=== PATIENT | female | born 1970 | race Caucasian/White ===

== ENCOUNTER 2016-06-19 21:06 | Emergency (ER) | payer BC, OTHER ==
--- NOTE | 2016-06-19 22:12 | RAD ---
Indication: Slurred speech. CT of the brain was performed without IV contrast. Ventricular structures are midline. No midline shift is noted. The extraction spaces are unremarkable. There is no evidence of intracranial mass or hemorrhage. No other high or low density lesions are identified. Mastoid air cells and paranasal sinuses are unremarkable. IMPRESSION: No intracranial mass or hemorrhage is noted.
[2016-06-19 22:33] LABS: Hematocrit 37 % (35-47); Hemoglobin 12.1 g/dl (12.0-16.0); Mean Corpuscular HGB Conc 33 g/dl (31-36); Mean Corpuscular Hemoglobin 30 pg (27-31); Mean Corpuscular Volume 91 fL (80-97); Mean Platelet Volume 9 um3 (7.4-10.4); Red Blood Count 4.03 10^6/ul (4.0-5.4); Red Cell Distribution Width 12 % (10.5-15); White Blood Count 7.2 10^3/ul (3.5-10.8)
[2016-06-19 22:43] LABS: ALT 48 U/L (7-52); AST 47 U/L (13-39); Albumin 3.8 g/dL (3.2-5.2); Alkaline Phosphatase 46 U/L (34-104); Anion Gap 9 mmol/L (2-11); BUN/Creatinine Ratio 24.1 (8-20); Blood Urea Nitrogen 20 mg/dL (6-24); CO2 Carbon Dioxide 26 mmol/L (22-32); Calcium 9.4 mg/dL (8.6-10.3); Chloride 103 mmol/L (101-111); EGFR African American 94.8 (>60); EGFR Non-African American 73.7 (>60); Globulin 3.1 g/dL (2-4); Glucose 106 mg/dL (70-100); Potassium 3.7 mmol/L (3.5-5.0); Sodium 138 mmol/L (133-145); Total Protein 6.9 g/dL (6.4-8.9)
[2016-06-19 22:47] LABS: Troponin I 0.01 ng/mL (<0.04)
[2016-06-19 23:35] LABS: Urine Bacteria Absent (Absent); Urine Bilirubin Negative (Negative); Urine Glucose Negative (Negative); Urine Nitrite Negative (Negative)
[2016-06-19 23:47] VITALS: BP 118/72
--- NOTE | 2016-06-20 00:12 | ED ---
Eduin Hendricks Claudia, scribed for Maco Saravia on 06/19/16 at 2114 . Neurological HPI - HPI Summary HPI Summary: 46 year old female presents to the ED with an intermittent episode of peripheral visual loss with difficulty forming words. Pt states sudden onset a few minutes ago. Pt notes episode lasted about 20 minutes. She notes that Sx resolved by the time EMS arrived. PMHx of MS is noted with 20 years of no flare- ups. Pt denies CP, SOB. Pt denied any physical weakness or confusion and notes she was able to stand and ambulate but she did have difficulty forming ideas into words and sentences as well as texting her ideas to her . Pt takes Avonex Rx regularly for MS - History of Current Complaint Stated Complaint: STROKE LIKE SYMPTOMS Hx Obtained From: Patient Onset/Duration: Sudden Onset, Started minutes ago Timing: Intermittent Episodes Lasting: - 20 minutes Character: Impaired Speech - Allergy/Home Medications Allergies/Adverse Reactions: Allergies Allergy/AdvReac Type Severity Reaction Status Date / Time No Known Allergies Allergy Verified 02/15/15 10:48 PMH/Surg Hx/FS Hx/Imm Hx Previously Healthy: Yes Endocrine/Hematology History: Denies: Hx Diabetes Cardiovascular History: Denies: Hx Hypertension, Hx Pacemaker/ICD History: Denies: Hx Dialysis, Hx Renal Disease Sensory History: Denies: Hx Hearing Aid Psychiatric History: Denies: Hx Panic Disorder - Cancer History Hx Chemotherapy: No Hx Radiation Therapy: No - Surgical History Surgery Procedure, Year, and Place: 2004,BREAST BIOPSY 2010 - Family History Known Family History: Negative: Hypertension, Diabetes - Social History Occupation: Employed Full-time Lives: With Family Hx Substance Use: No Hx Tobacco Use: No Review of Systems Constitutional: Negative Eyes: Negative ENT: Negative Cardiovascular: Negative Negative: Chest Pain Respiratory: Negative Negative: Shortness Of Breath Gastrointestinal: Negative Genitourinary: Negative Musculoskeletal: Negative Skin: Negative Neurological: Negative Psychological: Normal All Other Systems Reviewed And Are Negative: Yes Physical Exam Triage Information Reviewed: Yes Vital Signs Reviewed: Yes Appearance: Positive: Well-Appearing, No Pain Distress Skin: Positive: Warm, Skin Color Reflects Adequate Perfusion, Dry Head/Face: Positive: Normal Head/Face Inspection Eyes: Positive: EOMI, PERLA ENT: Positive: Normal ENT inspection Neck: Positive: Supple, Nontender Respiratory/Lung Sounds: Positive: Clear to Auscultation, Breath Sounds Present Cardiovascular: Positive: RRR, Pulses are Symmetrical in both Upper and Lower Extremities Abdomen Description: Positive: Nontender, Soft Musculoskeletal: Positive: Normal, Strength/ROM Intact Neurological: Positive: Normal, Sensory/Motor Intact, Alert, Oriented to Person Place, Time Diagnostics - Laboratory Result Diagrams: 06/19/16 22:00 06/19/16 22:00 Lab Statement: Any lab studies that have been ordered have been reviewed, and results considered in the medical decision making process. - CT BRAIN CT CT Interpretation: No Acute Changes - NO ACUTE INTRACRANIAL MASSES OR HEMMORHAGE CT Interpretation Completed By: Radiologist - EKG 21:05 Cardiac Rate: NL EKG Rhythm: Sinus Rhythm - 69 beats/min NIH Scale - NIH Scale Level of Consciousness: Alert/Keenly Responsive Ask Patient the Month and His/Her Age: Both Correct Ask Pt to Open/Close Eyes and Chief Digital Officer/Release Non-Paretic Hand: Both Correctly Best Gaze (Only Horizontal Eye Movement): Normal Visual Field Testing: No Visual Loss Facial Paresis-Pt to Smile & Close Eyes or Grimace Symmetry: Normal/Symmetrical Motor Function - Right Arm: No Drift-Holds 10 Seconds Motor Function - Left Arm: No Drift-Holds 10 Seconds Motor Function - Right Leg: No Drift-Holds 10 Seconds Motor Function - Left Leg: No Drift-Holds 10 Seconds Limb Ataxia-Must be out of Proportion to Weakness Present: Absent Sensory (Use Pinprick to Test Arms/Legs/Trunk/Face): Normal Best Language (Describe Picture, Name Items): No Aphasia Dysarthria (Read Several Words): Normal Extinction and Inattention: No Abnormality Total Score: 0 Course/Dx - Course Assessment/Plan: AFTER CT BRAIN AND EKG AND CONSULT WITH NEUROLOGY PT IS AGREEABLE WITH THE PLAN TO BE D/C HOME WITH A CALL TO DR. HAMEED IN THE AM FOR A FOLLOW-UP APPT. - Diagnoses Provider Diagnoses: Multiple sclerosis - Physician Notifications Discussed Care of Patient With: Discussed care of patient with Dr. Soriano. Time Discussed With Above Provider: 22:43 Discharge - Discharge Plan Condition: Stable Disposition: HOME Patient Education Materials: Multiple Sclerosis (GEN) Referrals: Vilma Hameed MD [Medical Doctor] - (CALL IN THE MORNING TO MAKE AN APPOINTMENT ) The documentation as recorded by the scribEduin pizarro Claudia accurately reflects the service I personally performed and the decisions made by me, Maco Saravia.
== END 2016-06-19 23:45 | disposition home or self-care (01) ==
LOC: ED 21:06
DX: G35 Multiple sclerosis (principal)
CPT/HCPCS: 36415; 70450; 80053; 81003; 81015; 84484; 84702; 85025; 85610; 87086; 93005; 99282

== ENCOUNTER 2016-09-07 10:08 | Emergency (ER) | payer BC, OTHER ==
--- NOTE | 2016-09-07 11:07 | UC ---
Hand/Wrist HPI - HPI Summary HPI Summary: 46 yo female with severe pain distal 4th 5th MCs of left hand tx 2 days attempts to flex 4th/5th fingers increase pain she is right handed - History Of Current Complaint Chief Complaint: UCUpperExtremity Stated Complaint: HAND PAIN Time Seen by Provider: 09/07/16 11:06 Hx Obtained From: Patient Hx Last Menstrual Period: IUD Onset/Duration: Gradual Onset, Lasting Days Severity Initially: Severe Severity Currently: Severe Pain Intensity: 4 Pain Scale Used: 0-10 Numeric Character Of Pain: Aching, Throbbing Aggravating Factor(s): Movement, Flexion Alleviating: Nothing Associated Signs And Symptoms: Negative: Swelling, Redness, Bruising, Fever, Weakness, Numbness/Tingling Related History: Dominant Hand Right - Allergies/Home Medications Allergies/Adverse Reactions: Allergies Allergy/AdvReac Type Severity Reaction Status Date / Time Codeine Allergy GI Upset Verified 09/07/16 10:45 Hydrocodone [From Vicodin] AdvReac GI Upset Verified 06/20/16 18:24 Oxycodone [From Percocet] AdvReac GI Upset Verified 06/20/16 18:24 Home Medications: Home Medications Interferon Beta-1A [Avonex Pen] 5 mcg IM WEEKLY 09/07/16 [History Confirmed ] PMH/Surg Hx/FS Hx/Imm Hx Previously Healthy: Yes - MS Endocrine History Of: Denies: Diabetes Cardiovascular History Of: Denies: Hypertension, Pacemaker/ICD Respiratory History Of: Denies: Asthma GI/ History Of: Denies: Renal Disease Cancer History Of: Denies: Breast Cancer - Surgical History Surgical History: None Surgery Procedure, Year, and Place: 2004;. HEMMOROIDECTOMY;. BREAST BIOPSY 2010; - Family History Known Family History: Negative: Hypertension, Diabetes - Social History Alcohol Use: Rare Substance Use Type: None Smoking Status (MU): Never Smoked Tobacco Review of Systems Constitutional: Negative Skin: Negative Eyes: Negative ENT: Negative Respiratory: Negative Cardiovascular: Negative Gastrointestinal: Negative Genitourinary: Negative Motor: Negative Neurovascular: Negative Musculoskeletal: Arthralgia Neurological: Negative Psychological: Negative All Other Systems Reviewed And Are Negative: Yes Physical Exam Triage Information Reviewed: Yes Appearance: Well-Appearing, No Pain Distress, Well-Nourished Vital Signs: Initial Vital Signs Temp 98.8 F 09/07/16 10:37 Pulse 77 09/07/16 10:37 Resp 16 09/07/16 10:37 BP 131/74 09/07/16 10:37 Pulse Ox 100 09/07/16 10:37 Eyes: Positive: Conjunctiva Clear ENT: Positive: Hearing grossly normal. Negative: Nasal congestion, Nasal drainage, Trismus, Muffled/hoarse voice Neck: Positive: Supple Respiratory: Positive: Lungs clear, Normal breath sounds, No respiratory distress, No accessory muscle use Cardiovascular: Positive: RRR, No Murmur Musculoskeletal: Positive: Other: - see image Neurological: Positive: Alert Psychological Exam: Normal Skin Exam: Normal Hand/Wrist Course/Dx - Differential Dx/Diagnosis Provider Diagnoses: left hand tendonitis Discharge - Discharge Plan Condition: Stable Disposition: HOME Prescriptions: Naproxen [Naproxen 500 MG TABS] 500 mg PO BID PRN #30 tab PRN Reason: Pain Patient Education Materials: Tendinitis (ED) Referrals: Jonathan Barnes MD [Primary Care Provider] - Additional Instructions: warm soaks with range of motion followed by massage (4x day) see your MD early in the week as planned Images Hands: 1 - tender/unable to flex 4th /5th fingers due to pain
--- NOTE | 2016-09-07 11:46 | RAD ---
INDICATION: Left hand pain. TECHNIQUE: 2 views of the left hand were obtained. FINDINGS: The bones are in normal alignment. No fracture is seen. There is a calcification present adjacent to the lateral base of the fifth proximal phalanx. Joint spaces appear maintained. No significant arthritic change is seen. IMPRESSION: SOFT TISSUE CALCIFICATION ADJACENT TO THE LATERAL BASE OF THE FIFTH PROXIMAL PHALANX.
[2016-09-07 12:26] VITALS: BP 124/79
== END 2016-09-07 12:28 | disposition home or self-care (01) ==
LOC: UCEAST 10:08
DX: M65.842 Other synovitis and tenosynovitis, left hand (principal); Z88.5 Allergy status to narcotic agent
CPT/HCPCS: 99212; G0463

== ENCOUNTER 2018-02-10 13:27 | Emergency (ER) | payer BC, OTHER ==
[2018-02-10 13:45] VITALS: BP 108/69
--- NOTE | 2018-02-10 14:47 | ED ---
Headache - HPI Summary HPI Summary: MS Patient presents with new onset left-sided headache since Friday. She reports it's been intermittent and she developed this the second night of camping with her family at [facility]. She is concerned as this headache is waking her from sleep each night since. She reports is an aching pressure and denies visual change or aura. She does admit to some neck soreness , left greater than right, but states this is very mild and she has chronic shoulder and neck tension. When the pain starts, she applies pressure to the left side of her head with her hand which helps until her 400 mg of ibuprofen kicks in. However once the 400 mg of ibuprofen wears off in 4-6 hours, her headache returns and is quite painful. She reports it being 6-7 out of 10 at its worst and she has difficulty concentrating when it's present. 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 Last night she admits when her headache started, she developed some spins and dizziness with nausea. This was not triggered or worsened with change in position and she states the symptoms lasted briefly and resolved once her helped calm her down by reassurance. She does admit she was quite anxious during this episode last night. Took ibuprofen at 12:30pm this afternoon and MA is currently under control (0/10 pain). She is here today as she continues to get headaches once the ibuprofen wears off. She denies URI symptoms, fever, chills, any recent head injuries or trauma , change in lifestyle including change in medications. She does have a history of MS which is only triggered by overheating and her symptoms present with blurred vision only. She has had no exposure to heat nor change in vision since these symptoms started. Currently, she denies numbness, tingling, weakness, balance issues, slurring, abnormal speech. She follows with Dr. Vilma So and has an MRI annually which is always normal. Furthermore, she denies recent stress and in fact felt very relaxed while camping this weekend with her family. She does admit she drank more alcohol than usual however this was still a small amount (i.e. one and 1/2, 12 ounce bottles of hard cider 2 nights in a row). She reports she also drink plenty of water and had non-hard apple cider. She hiked w/o difficulty or pain and slept well except for when headache woke her from sleep each night. No known h/o tick bite. - History Of Current Complaint Chief Complaint: UCHeadache Stated Complaint: HEADACHE Time Seen by Provider: 02/10/18 13:59 Hx Obtained From: Patient Hx Last Menstrual Period: IUD in place - Allergies/Home Medications Allergies/Adverse Reactions: Allergies Allergy/AdvReac Type Severity Reaction Status Date / Time codeine Allergy GI Upset Verified 02/10/18 13:45 hydrocodone Allergy GI Upset Verified 02/10/18 13:45 oxycodone Allergy GI Upset Verified 02/10/18 13:45 Home Medications: Home Medications Ibuprofen [dyna[employer] softwareense Ibuprofen] 400 mg PO ONCE PRN 02/10/18 [History Confirmed 02/10/18] PMH/Surg Hx/FS Hx/Imm Hx Previously Healthy: Yes Endocrine/Hematology History: Reports: Autoimmune Disease - MS Denies: Hx Anticoagulant Therapy, Hx Blood Disorders, Hx Diabetes, Hx Thyroid Disease, Hx Anemia Cardiovascular History: Denies: Hx Aneurysm, Hx Hypertension, Hx Pacemaker/ICD Respiratory History: Denies: Hx Asthma GI History: Denies: Hx Gastrointestinal Bleed History: Denies: Hx Dialysis, Hx Renal Disease Musculoskeletal History: Denies: Hx Arthritis Sensory History: Reports: Hx Contacts or Glasses Denies: Hx Hearing Aid Opthamlomology History: Reports: Hx Contacts or Glasses Neurological History: Reports: Other Neuro Impairments/Disorders - MS - sx include blurred vision when she overheats Denies: Hx CVA, Hx Dementia, Hx Headaches, Hx Migraine, Hx Peripheral Neuropathy, Hx Seizures Psychiatric History: Denies: Hx Panic Disorder - Cancer History Hx Chemotherapy: No Hx Radiation Therapy: No - Surgical History Surgery Procedure, Year, and Place: 2004;. HEMMOROIDECTOMY;. Rt BREAST BIOPSY 2010 - W/ BX MARKER Infectious Disease History: No Infectious Disease History: Denies: Traveled Outside the [place] in Last 30 Days - Family History Known Family History: Negative: Hypertension, Diabetes - Social History Alcohol Use: Rare Hx Substance Use: No Substance Use Type: Reports: None Hx Tobacco Use: No Smoking Status (MU): Never Smoked Tobacco Review of Systems Constitutional: Negative Negative: Fever, Chills, Fatigue Eyes: Negative Negative: Photophobia, Blurred Vision, Diplopia, Drainage, Erythema ENT: Negative Negative: Epistaxis, Dental Pain, Sore Throat, Ear Ache, Nasal Discharge Cardiovascular: Negative Negative: Palpitations, Chest Pain Respiratory: Negative Negative: Shortness Of Breath, Cough Gastrointestinal: Negative Negative: Abdominal Pain, Vomiting, Diarrhea, Nausea Positive: no symptoms reported Positive: Myalgia - neck Skin: Negative Positive: Headache. Negative: Weakness, Paresthesia, Numbness, Syncope, Slurred Speech Psychological: Normal - concerned but overall low stress All Other Systems Reviewed And Are Negative: Yes Physical Exam Triage Information Reviewed: Yes Vital Signs On Initial Exam: Initial Vitals Temp Pulse Resp BP Pulse Ox 97.6 F 73 18 108/69 99 02/10/18 13:38 02/10/18 13:38 02/10/18 13:38 02/10/18 13:38 02/10/18 13:38 Vital Signs Reviewed: Yes Appearance: Positive: Well-Appearing, No Pain Distress, Well-Nourished Skin: Positive: Warm, Skin Color Reflects Adequate Perfusion, Dry - no rsah, lesions Head/Face: Positive: Normal Head/Face Inspection Eyes: Positive: Normal, EOMI, PERLA - no photophobia, Conjunctiva Clear. Negative: Conjunctiva Inflammed, Discharge ENT: Positive: Normal ENT inspection, Hearing grossly normal, Pharynx normal, TMs normal, Uvula midline. Negative: Nasal congestion, Nasal drainage, Tonsillar swelling, Tonsillar exudate, Trismus, Muffled voice, Hoarse voice, Sinus tenderness Dental: Negative: Abscess @ Neck: Positive: Supple, Nontender, No Lymphadenopathy Respiratory/Lung Sounds: Positive: Clear to Auscultation, Breath Sounds Present. Negative: Rales, Rhonchi, Wheezes Cardiovascular: Positive: Normal, RRR, S1, S2. Negative: Murmur, Rub, Leg Edema Left, Leg Edema Right Abdomen Description: Positive: Soft Bowel Sounds: Positive: Present Musculoskeletal: Positive: Normal, Strength/ROM Intact Neurological: Positive: Normal, Sensory/Motor Intact, Alert, Oriented to Person Place, Time, CN Intact II-III, Reflexes Intact, Normal Gait, Heel to Toe - normal, Finger to Nose, Facial Symmetry, Speech Normal. Negative: Disoriented, Pronator Drift Present Psychiatric: Positive: Normal Diagnostics - Vital Signs Vital Signs Temp Pulse Resp BP Pulse Ox 02/10/18 13:38 97.6 F 73 18 108/69 99 - Laboratory Lab Statement: Any lab studies that have been ordered have been reviewed, and results considered in the medical decision making process. Headache Course/Dx - Course Course Of Treatment: Pt w/ MS and persistent unilateral MA x 4 days who does not typically get MA's nor has she had a definitive dx of migraine presents today w/ concern of underlying pathology. Clinically, she is neurologically intact nad vitals are WNL. Discussed case w/ Dr. Belle who recommends ED evaluation for labs as well as MRI W/WO contrast to better evaluate for MS flair up. Pt agrees w/ plan and will have her drive her directly to the hospital. She declines ambulance. Pt in stable condition at time of transition of care. Spoke w/ JOELLE in ED who is aware of pt's recommended medical plan. 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 - Billing Disposition and Condition Condition: STABLE Disposition: Home-Recommend to ED
== END 2018-02-10 15:35 | disposition home health service (06) ==
LOC: UCEAST 13:27
DX: R51 Headache (principal); G35 Multiple sclerosis; Z88.5 Allergy status to narcotic agent
CPT/HCPCS: 99212; G0463

== ENCOUNTER 2018-02-10 16:27 | Emergency (ER) | payer BC, OTHER ==
[2018-02-10 18:33] LABS: ABS Basophils 0 10^3/ul (0-0.2); ABS Eosinophils 0.1 10^3/ul (0-0.6); ABS Lymphocytes 1.9 10^3/ul (1.0-4.8); ABS Monocytes 0.7 10^3/ul (0-0.8); ABS Neutrophils 5.8 10^3/ul (1.5-7.7); ABS Nucleated RBC 0 10^3/ul; Eosinophil % 1.4 % (0-6); Hematocrit 36 % (35-47); Hemoglobin 12.2 g/dl (12.0-16.0); Mean Corpuscular HGB Conc 34 g/dl (31-36); Mean Corpuscular Hemoglobin 31 pg (27-31); Mean Corpuscular Volume 93 fL (80-97); Mean Platelet Volume 7.9 um3 (7.4-10.4); Nucleated Red Blood Cells % 0; Platelet Count 264 10^3/ul (150-450); Red Blood Count 3.89 10^6/ul (4.00-5.40); Red Cell Distribution Width 12 % (10.5-15); White Blood Count 8.5 10^3/ul (3.5-10.8)
[2018-02-10 18:55] LABS: EGFR Non-African American 74.4 (>60)
[2018-02-10] MEDS ORDERED: Ibuprofen TAB* 600 MG PO ONE (19:21)
[2018-02-10] MEDS ORDERED: Gadoteridol* (CONTRAST) 279.3 MG/ML 10 ML IV ONE (19:47)
--- NOTE | 2018-02-10 21:00 | RAD ---
EXAM: MRI Head Without and With Intravenous Contrast EXAM DATE/TIME: 02/10/2018 8:08 PM CLINICAL HISTORY: 47 years old, female; Pain and condition or disease; Multiple sclerosis; Headache; Headache not specified; Patient HX: C/O ongoing left sided headaches since friday. PT also reports one episode of nausea and dizziness upon waking. H/o ms. Sent to ed by neuro to [facility] for ms flair up. ; Additional info: MA, R/O ms flair per dr birmingham TECHNIQUE: Magnetic resonance images of the head/brain without and with intravenous contrast in multiple planes. CONTRAST: 13 ml of prohance administered intravenously. COMPARISON: BRAIN [facility] MRI BRAIN W/WO 10/02/2017 9:05 AM FINDINGS: Ventricular and subarachnoid spaces appear within normal limits. No extra-axial fluid collection. No midline shift or mass effect. There are foci of white matter gliosis involving both the periventricular/pericallosal white matter as well as subcortical white matter. No pathologic susceptibility. No diffusion restriction. No pathologic intracranial enhancement. Visualized paranasal sinuses and mastoid air cells are clear. IMPRESSION: White matter gliosis as above concerning for demyelination. No evidence of active demyelination. To contact [employer] with a general question: [facility] - [phone] For direct physician to physician contact: Physician Hotline - [phone] [facility] ([facility] Facility ID #[id number])
[2018-02-10] MEDS ORDERED: diPHENhydraMINE PO* 25 MG PO ONE (21:48)
[2018-02-10] MEDS ORDERED: Metoclopramide TAB* 10 MG PO ONE (21:48)
--- NOTE | 2018-02-10 21:51 | ED ---
Headache - HPI Summary HPI Summary: Patient complains of persistent headache 4 days. Headache described as left- sided frontal, intermittent, temporary relief with ibuprofen, which patient up and sleep. States associated with dizziness and nausea. Denies trauma, vision change, neck stiffness, fever, cough, sore throat, CP, V/D, abdominal pain, change in urine, change in BM. Patient has history of MS. Sent to the ED by neurologist Dr. So for MRI with and without contrast and lab work. - History Of Current Complaint Chief Complaint: EDHeadache Stated Complaint: HEADACHE Time Seen by Provider: 02/10/18 17:53 Hx Obtained From: Patient Hx Last Menstrual Period: IUD in place Onset/Duration: Gradual Onset Initially Headache Was: Moderate Currently Pain Is: Moderate Timing: Constant Character: Throbbing Location of Headache: Frontal Aggravating Factor: Nothing Allevating Factors: Medication Associated Signs And Symptoms: Nausea - Allergies/Home Medications Allergies/Adverse Reactions: Allergies Allergy/AdvReac Type Severity Reaction Status Date / Time codeine Allergy GI Upset Verified 02/10/18 13:45 hydrocodone Allergy GI Upset Verified 02/10/18 13:45 oxycodone Allergy GI Upset Verified 02/10/18 13:45 Home Medications: Home Medications Interferon Beta-1A [Avonex Pen] 30 mcg IM WEEKLY 02/10/18 [History Confirmed ] PMH/Surg Hx/FS Hx/Imm Hx Endocrine/Hematology History: Denies: Hx Anticoagulant Therapy, Hx Blood Disorders, Hx Diabetes, Hx Thyroid Disease, Hx Anemia Cardiovascular History: Denies: Hx Aneurysm, Hx Hypertension, Hx Pacemaker/ICD Respiratory History: Denies: Hx Asthma GI History: Denies: Hx Gastrointestinal Bleed History: Denies: Hx Dialysis, Hx Renal Disease Musculoskeletal History: Denies: Hx Arthritis Sensory History: Reports: Hx Contacts or Glasses Denies: Hx Hearing Aid Opthamlomology History: Reports: Hx Contacts or Glasses Neurological History: Reports: Other Neuro Impairments/Disorders - MS - sx include blurred vision when she overheats Denies: Hx CVA, Hx Dementia, Hx Headaches, Hx Migraine, Hx Peripheral Neuropathy, Hx Seizures Psychiatric History: Denies: Hx Panic Disorder - Cancer History Hx Chemotherapy: No Hx Radiation Therapy: No - Surgical History Surgery Procedure, Year, and Place: 2004;. HEMMOROIDECTOMY;. Rt BREAST BIOPSY 2010 - W/ BX MARKER Infectious Disease History: No Infectious Disease History: Denies: Traveled Outside the [place] in Last 30 Days - Family History Known Family History: Negative: Hypertension, Diabetes - Social History Alcohol Use: Rare Hx Substance Use: No Substance Use Type: Reports: Marijuana Hx Tobacco Use: No Smoking Status (MU): Never Smoked Tobacco Review of Systems Constitutional: Negative Eyes: Negative ENT: Negative Cardiovascular: Negative Respiratory: Negative Gastrointestinal: Negative Genitourinary: Negative Musculoskeletal: Negative Skin: Negative Positive: Headache Psychological: Normal All Other Systems Reviewed And Are Negative: Yes Physical Exam - Summary Physical Exam Summary: Neuro exam normal. Triage Information Reviewed: Yes Vital Signs On Initial Exam: Initial Vitals Temp Pulse Resp BP Pulse Ox 97.8 F 69 16 132/73 99 02/10/18 16:29 02/10/18 16:29 02/10/18 16:29 02/10/18 16:29 02/10/18 16:29 Vital Signs Reviewed: Yes Appearance: Positive: Well-Appearing Skin: Positive: Warm Head/Face: Positive: Normal Head/Face Inspection Eyes: Positive: Normal Neck: Positive: Supple Respiratory/Lung Sounds: Positive: Clear to Auscultation Cardiovascular: Positive: Normal Abdomen Description: Positive: Nontender Musculoskeletal: Positive: Normal Neurological: Positive: Normal Psychiatric: Positive: Normal AVPU Assessment: Alert - [place] Coma Scale Best Eye Response: 4 - Spontaneous Best Motor Response: 6 - Obeys Commands Best Verbal Response: 5 - Oriented Coma Scale Total: 15 Diagnostics - Vital Signs Vital Signs Temp Pulse Resp BP Pulse Ox 02/10/18 20:58 97.3 F 65 16 122/71 100 02/10/18 16:29 97.8 F 69 16 132/73 99 - Laboratory Lab Results: Lab Results 02/10/18 02/10/18 Range/Units 18:20 18:20 WBC 8.5 (3.5-10.8) 10^3/ul RBC 3.89 L (4.00-5.40) 10^6/ul Hgb 12.2 (12.0-16.0) g/dl Hct 36 (35-47) % MCV 93 (80-97) fL MCH 31 (27-31) pg MCHC 34 (31-36) g/dl RDW 12 (10.5-15) % Plt Count 264 (150-450) 10^3/ul MPV 7.9 (7.4-10.4) um3 Neut % (Auto) 68.1 (38-83) % Lymph % (Auto) 22.0 L (25-47) % Wetzel % (Auto) 8.0 H (0-7) % Eos % (Auto) 1.4 (0-6) % Baso % (Auto) 0.5 (0-2) % Absolute Neuts (auto) 5.8 (1.5-7.7) 10^3/ul Absolute Lymphs (auto) 1.9 (1.0-4.8) 10^3/ul Absolute Monos (auto) 0.7 (0-0.8) 10^3/ul Absolute Eos (auto) 0.1 (0-0.6) 10^3/ul Absolute Basos (auto) 0 (0-0.2) 10^3/ul Absolute Nucleated RBC 0 10^3/ul Nucleated RBC % 0 Sodium 138 (135-145) mmol/L Potassium 4.0 (3.5-5.0) mmol/L Chloride 107 (101-111) mmol/L Carbon Dioxide 25 (22-32) mmol/L Anion Gap 6 (2-11) mmol/L BUN 16 (6-24) mg/dL Creatinine 0.82 (0.51-0.95) mg/dL Est GFR ( Amer) 90.0 (>60) Est GFR (Non-Af Amer) 74.4 (>60) BUN/Creatinine Ratio 19.5 (8-20) Glucose 77 (70-100) mg/dL Calcium 9.0 (8.6-10.3) mg/dL Total Bilirubin 0.70 (0.2-1.0) mg/dL AST 14 (13-39) U/L ALT 9 (7-52) U/L Alkaline Phosphatase 44 (34-104) U/L C-Reactive Protein 7.08 (<8.01) mg/L Total Protein 6.7 (6.4-8.9) g/dL Albumin 4.1 (3.2-5.2) g/dL Globulin 2.6 (2-4) g/dL Albumin/Globulin Ratio 1.6 (1-3) Result Diagrams: 02/10/18 18:20 02/10/18 18:20 Lab Statement: Any lab studies that have been ordered have been reviewed, and results considered in the medical decision making process. Headache Course/Dx - Course Course Of Treatment: Patient complains of persistent headache 4 days. Headache described as left-sided frontal, intermittent, temporary relief with ibuprofen, which patient up and sleep. States associated with dizziness and nausea. Denies trauma, vision change, neck stiffness, fever, cough, sore throat , CP, V/D, abdominal pain, change in urine, change in BM. Patient has history of MS. Sent to the ED by neurologist Dr. So for MRI with and without contrast and lab work. History of headache and MS. pain improved with ibuprofen. MRI negative for acute process. Lab work unremarkable. Vital signs unremarkable. Follow-up with Dr. So - Diagnoses Provider Diagnoses: Headache, Multiple sclerosis Discharge - Sign-Out/Discharge Documenting (check all that apply): Patient Departure - Discharge Plan Condition: Stable Disposition: HOME Patient Education Materials: Multiple Sclerosis (DC), Acute Headache (ED) Referrals: Jonathan Barnes MD [Primary Care Provider] - Additional Instructions: Follow-up with your neurologist. Return to the ED for any new or worsening symptoms - Billing Disposition and Condition Condition: STABLE Disposition: Home
[2018-02-10 22:33] VITALS: BP 117/61
== END 2018-02-10 22:33 | disposition home or self-care (01) ==
LOC: ED 16:27
DX: R51 Headache (principal); R90.82 White matter disease, unspecified; G35 Multiple sclerosis; R42 Dizziness and giddiness; R11.0 Nausea; Z88.5 Allergy status to narcotic agent
CPT/HCPCS: 36415; 70553; 80053; 85025; 86140; 96374; 99282; A9270-GY; A9579

== ENCOUNTER 2018-06-22 16:52 | Emergency (ER) | payer BC, OTHER ==
[2018-06-22] MEDS ORDERED: diPHENhydraMINE IV* 50 MG/ML 1 ml VIAL (BENADRYL) IV ONE (16:57)
[2018-06-22] MEDS ORDERED: methylPREDNISolone 125 MG* 2 ML VIAL IV ONE (16:58)
[2018-06-22] MEDS ORDERED: Famotidine IV* 10 MG/ML 2 ML (20 mg) IV SLOW PU ONE (16:58)
[2018-06-22] MEDS ORDERED: Famotidine IV* 10 MG/ML 2 ML (20 mg) ONE (16:58)
--- NOTE | 2018-06-22 17:09 | UC ---
Allergic Reaction HPI - HPI Summary HPI Summary: 48-year-old woman comes in with chief complaint allergic reaction. Started about 45 minutes ago as she was walking into her home. She has facial swelling feels like her hands are swollen. Her throat is also tight. She took some Benadryl at home she says it was probably out of date does not appear to have helped at all. She's not sure what she is having a reaction to. She had eaten some celery approx 45 minutes prior to the reaction. - History of Current Complaint Stated Complaint: EYE COMPLAINT,SORE THROAT Time Seen by Provider: 06/22/18 16:57 Hx Last Menstrual Period: IUD in place - Allergies/Home Medications Allergies/Adverse Reactions: Allergies Allergy/AdvReac Type Severity Reaction Status Date / Time codeine Allergy GI Upset Verified 06/22/18 17:15 hydrocodone Allergy GI Upset Verified 06/22/18 17:15 oxycodone Allergy GI Upset Verified 06/22/18 17:15 PMH/Surg Hx/FS Hx/Imm Hx Previously Healthy: Yes Other History Of: Negative For: Anticoagulant Therapy - Surgical History Surgical History: Yes Surgery Procedure, Year, and Place: 2004;. HEMMOROIDECTOMY;. Rt BREAST BIOPSY 2010 - W/ BX MARKER - Family History Known Family History: Negative: Hypertension, Diabetes - Social History Alcohol Use: Rare Substance Use Type: Marijuana Smoking Status (MU): Never Smoked Tobacco Review of Systems All Other Systems Reviewed And Are Negative: Yes Constitutional: Positive: Negative Skin: Positive: Other - see hpi Eyes: Positive: Other - eyelids swollen ENT: Positive: Other - throat is tight Respiratory: Positive: Shortness Of Breath Cardiovascular: Positive: Negative Gastrointestinal: Positive: Negative Motor: Positive: Negative Neurovascular: Positive: Negative Musculoskeletal: Positive: Negative Neurological: Positive: Negative Psychological: Positive: Negative Is Patient Immunocompromised?: No Physical Exam Triage Information Reviewed: Yes Appearance: No Pain Distress, Well-Nourished, Other: - anxious. has facial swelling. Eyes: Positive: Conjunctiva Clear ENT: Positive: Pharynx normal, Muffled voice - mild, Uvula midline - uvula is swollen.Mild obstruction of oropharynx.. Negative: Pharyngeal erythema Neck: Positive: Supple Respiratory: Positive: Lungs clear, Normal breath sounds, No respiratory distress, No accessory muscle use Cardiovascular: Positive: RRR Musculoskeletal Exam: Normal Musculoskeletal: Positive: Strength Intact, ROM Intact Neurological Exam: Normal Neurological: Positive: Alert, Muscle Tone Normal Psychological Exam: Normal Psychological: Positive: Age Appropriate Behavior Skin: Positive: Other - Erythema/swelling face, worst on eyelids. No perioral swelling. Allergic Reaction Course/Dx - Course Course Of Treatment: Patient was given IV Benadryl 50 mg, Pepcid 40 mg, and Solu -Medrol 125 mg in clinic. She had mild improvement in his symptoms however her uvula at the base was still swollen. We gave epinephrine 0.3 mg IM. An hour and a half later the swelling has decreased greatly and she's been able swallow water. At this time the options are to go to the emergency department for further evaluation versus going home and going to the emergency department if things worsen. Patient reports she feels comfortable going home at this time. Her is here with her. I am doing prescriptions for more Pepcid and prednisone and also for EpiPen's. Patient will also take Benadryl as needed. I let her know that if her condition worsened the need to go directly to the emergency department or call 911 to have an ambulance come. - Differential Dx/Diagnosis Provider Diagnosis: Allergic reaction Discharge - Sign-Out/Discharge Documenting (check all that apply): Patient Departure All imaging exams completed and their final reports reviewed: No Studies - Discharge Plan Condition: Stable Disposition: HOME Prescriptions: EPINEPHrine [Epipen 2-Lexa] 0.3 mg IM ONCE PRN #1 lexa PRN Reason: Allergy Symptoms Famotidine TAB* [Pepcid 20 MG TAB*] 20 mg PO BID PRN #10 tab PRN Reason: Allergy Symptoms predniSONE TAB* [Deltasone 20 MG TAB*] 40 mg PO DAILY PRN #10 tab PRN Reason: Allergy Symptoms Patient Education Materials: General Allergic Reaction (ED) Referrals: Jonathan Barnes MD [Primary Care Provider] - Additional Instructions: FOLLOW UP WITH YOUR DOCTOR IF NOT COMPLETELY IMPROVED. IF YOU HAVE DIFFICULTY SWALLOWING OR BREATHING, USE THE EPI PEN DIRECTED AND GO TO THE NEAREST EMERGENCY DEPARTMENT. TAKE BENADRYL 50MG EVERY 6 HOURS NEEDED. TAKE PEPCID 20MG TWICE A DAY NEEDED. TAKE THE PREDNISONE DIRECTED NEEDED. GO TO THE EMERGENCY DEPARTMENT FOR ANY WORSENING OF YOUR CONDITION; DIFFICULTY SWALLOWING OR BREATHING, WORSENING OF YOUR SYMPTOMS OR QUESTIONS OR CONCERNS. - Billing Disposition and Condition Condition: STABLE Disposition: Home
[2018-06-22] MEDS ORDERED: EPINEPHRINE 1 MG/ML 1 ML VIAL IM ONE (17:24)
[2018-06-22 18:59] VITALS: BP 109/69
== END 2018-06-22 19:30 | disposition home or self-care (01) ==
LOC: UCEAST 16:52
DX: R22.0 Localized swelling, mass and lump, head (principal); T78.40XA Allergy, unspecified, initial encounter; X58.XXXA Exposure to other specified factors, initial encounter; Z88.5 Allergy status to narcotic agent; Z88.8 Allergy status to other drugs, medicaments and biological substances
CPT/HCPCS: 96360; 96365; 96372; 96374; 96375; 99211; G0463; J1200; J2930

== ENCOUNTER 2018-07-31 11:00 | Emergency (ER) | payer BC, OTHER ==
[2018-07-31 11:21] VITALS: BP 119/77
--- NOTE | 2018-07-31 11:31 | UC ---
Throat Pain/Nasal Isidoro HPI - HPI Summary HPI Summary: 48 yo female presents with sinus pain/pressure/congestion, post nasal drip, and slight cough for the last 5 days. She has been taking robitussin OTC with mild relief. She is concerned because she has MS and "has a life to lead" and doesn' t want to be sick. Denies fever, chills, SOB, chest pain, rash. - History of Current Complaint Chief Complaint: UCRespiratory Stated Complaint: SINUS ISSUE Time Seen by Provider: 07/31/18 11:25 Hx Obtained From: Patient Hx Last Menstrual Period: IUD in place Onset/Duration: Gradual Onset Severity: Moderate Pain Intensity: 7 Pain Scale Used: 0-10 Numeric - Allergies/Home Medications Allergies/Adverse Reactions: Allergies Allergy/AdvReac Type Severity Reaction Status Date / Time codeine Allergy GI Upset Verified 07/31/18 11:21 hydrocodone Allergy GI Upset Verified 07/31/18 11:21 oxycodone Allergy GI Upset Verified 07/31/18 11:21 Home Medications: Home Medications Guaifenesin/Dextromethorphan [Robitussin Cough-Chest Dm Liq] 1 dose PO ONCE PRN 07/31/18 [History Confirmed 07/31/18] PMH/Surg Hx/FS Hx/Imm Hx - Additional Past Medical History Additional PMH: MS Other History Of: Negative For: Anticoagulant Therapy - Surgical History Surgical History: Yes Surgery Procedure, Year, and Place: 2004;. HEMMOROIDECTOMY;. Rt BREAST BIOPSY 2010 - W/ BX MARKER - Family History Known Family History: Negative: Hypertension, Diabetes - Social History Occupation: Employed Full-time Lives: With Family Alcohol Use: Weekly Substance Use Type: None Substance Use Comment - Amount & Last Used: hx marijuana Smoking Status (MU): Never Smoked Tobacco Review of Systems All Other Systems Reviewed And Are Negative: Yes Constitutional: Positive: Negative Skin: Positive: Negative Eyes: Positive: Negative ENT: Positive: Nasal Discharge, Sinus Congestion, Sinus Pain/Tenderness Respiratory: Positive: Cough Cardiovascular: Positive: Negative Gastrointestinal: Positive: Negative Neurological: Positive: Negative Psychological: Positive: Negative Physical Exam - Summary Physical Exam Summary: GENERAL: NAD. WDWN. No pain distress. SKIN: No rashes, sores, lesions, or open wounds. HEENT: Head: AT/NC Eyes: EOM intact. Conjunctiva clear without inflammation or discharge. Ears: Hearing grossly normal. TMs intact, no bulging, erythema, or edema. Nose: Nasal mucosa mildly swollen and erythematous with yellow discharge. TTP frontal sinus. Positive post nasal drip Throat: Posterior oropharynx without exudates, erythema, or tonsillar enlargement. Uvula midline. NECK: Supple. Nontender. No lymphadenopathy. CHEST: CTAB. No r/r/w. No accessory muscle use. Breathing comfortably and in no distress. CV: RRR. Without m/r/g. Pulses intact. NEURO: Alert. PSYCH: Age appropriate behavior. Triage Information Reviewed: Yes Vital Signs: Initial Vital Signs Temp 99.2 F 07/31/18 11:18 Pulse 69 07/31/18 11:18 Resp 20 07/31/18 11:18 BP 119/77 07/31/18 11:18 Pulse Ox 100 07/31/18 11:18 Vital Signs Reviewed: Yes Throat Pain/Nasal Course/Dx - Course Course Of Treatment: Suspect viral sinusitis. Discussed this with pt and she requests to be on anbx at this time. Will rx for amoxicillin and have her continue her OTC medications. F/u with PCP if her symptoms do not improve. - Differential Dx/Diagnosis Provider Diagnosis: Rhinosinusitis Discharge - Sign-Out/Discharge Documenting (check all that apply): Patient Departure All imaging exams completed and their final reports reviewed: No Studies - Discharge Plan Condition: Stable Disposition: HOME Prescriptions: Amoxicillin PO (*) [Amoxicillin 500 MG CAP*] 500 mg PO Q12H #14 cap Patient Education Materials: Rhinosinusitis (DC) Referrals: Jonathan Barnes MD [Primary Care Provider] - Additional Instructions: If you develop a fever, shortness of breath, chest pain, new or worsening symptoms - please call your PCP or go to the ED. Continue taking Robitussin/Mucinex for your congestion and cough - Billing Disposition and Condition Condition: STABLE Disposition: Home
== END 2018-07-31 11:52 | disposition home or self-care (01) ==
LOC: UCEAST 11:00
DX: J32.9 Chronic sinusitis, unspecified (principal); Z88.5 Allergy status to narcotic agent
CPT/HCPCS: 99212; G0463

== ENCOUNTER 2018-08-10 11:44 | Emergency (ER) | payer BC, OTHER ==
[2018-08-10 12:22] VITALS: BP 127/72
--- NOTE | 2018-08-10 12:58 | UC ---
Respiratory Complaint HPI - HPI Summary HPI Summary: 48-year-old female presents with complaints of a persistent cough. She was seen at this facility on 07/31/2018 and diagnosed with a rhinosinusitis and started on a ten-day course of amoxicillin which she states she completed. States her symptoms improved after being on the antibiotics however over the past 3 days she has developed a harsh, cough is occasionally productive for yellow sputum. States the cough is keeping her up at night. Associated with some chills. Patient does have a history of MS. Denies fever, nasal congestion , runny nose, ear pain, sore throat, chest pain, shortness of breath, abdominal , nausea, or vomiting. - History of Current Complaint Chief Complaint: UCRespiratory Stated Complaint: FLU LIKE SYMP/COUGH Time Seen by Provider: 08/10/18 12:27 Hx Obtained From: Patient Hx Last Menstrual Period: 08/05/18 Pain Intensity: 0 - Allergies/Home Medications Allergies/Adverse Reactions: Allergies Allergy/AdvReac Type Severity Reaction Status Date / Time codeine Allergy GI Upset Verified 08/10/18 12:23 hydrocodone Allergy GI Upset Verified 08/10/18 12:23 oxycodone Allergy GI Upset Verified 08/10/18 12:23 PMH/Surg Hx/FS Hx/Imm Hx Neurological History: Other - MS Other History Of: Negative For: Anticoagulant Therapy - Surgical History Surgical History: Yes Surgery Procedure, Year, and Place: 2004;. HEMMOROIDECTOMY;. Rt BREAST BIOPSY 2010 - W/ [facility] - Family History Known Family History: Positive: Non-Contributory - Social History Occupation: Employed Full-time Lives: With Family Alcohol Use: Weekly Substance Use Type: None Substance Use Comment - Amount & Last Used: hx marijuana Smoking Status (MU): Never Smoked Tobacco Review of Systems All Other Systems Reviewed And Are Negative: Yes Constitutional: Positive: Chills, Fatigue. Negative: Fever Skin: Negative: Rash Eyes: Negative: Drainage, Eye Redness ENT: Negative: Sore Throat, Ear Ache, Nasal Discharge, Sinus Congestion, Sinus Pain/Tenderness Respiratory: Positive: Cough. Negative: Shortness Of Breath Cardiovascular: Negative: Palpitations, Chest Pain Gastrointestinal: Negative: Abdominal Pain, Vomiting, Diarrhea, Nausea Genitourinary: Positive: Negative Musculoskeletal: Positive: Negative Neurological: Positive: Negative Is Patient Immunocompromised?: No Physical Exam - Summary Physical Exam Summary: GENERAL APPEARANCE: Well developed, well nourished, alert and cooperative, and appears to be in no acute distress. EYES: Conjunctiva clear. No drainage. EARS: External auditory canals and tympanic membranes clear, hearing grossly intact. NOSE: No nasal discharge. THROAT: Pharynx normal. No tonsilar inflammation, swelling, exudate, or lesions. Uvula midline. Oral cavity normal. Teeth and gingiva in good general condition. NECK: Neck supple, non-tender without lymphadenopathy. CARDIAC: Normal S1 and S2. No S3, S4 or murmurs. Rhythm is regular. There is no peripheral edema, cyanosis or pallor. Extremities are warm and well perfused. Capillary refill is less than 2 seconds. Peripheral pulses intact. LUNGS: Clear to auscultation without rales, rhonchi, wheezing or diminished breath sounds. Dry, non-productive cough. ABDOMEN: Positive bowel sounds. Soft, nondistended, nontender. No guarding or rebound. No masses or hepatosplenomegally. MUSKULOSKELETAL: ROM intact to all extremities. No joint erythema or tenderness. Normal muscular development. Normal gait. SKIN: Skin normal color, texture and turgor with no lesions or eruptions. Triage Information Reviewed: Yes Vital Signs: Initial Vital Signs Temp 98.2 F 08/10/18 12:20 Pulse 73 08/10/18 12:20 Resp 18 08/10/18 12:20 BP 127/72 08/10/18 12:20 Pulse Ox 100 08/10/18 12:20 Vital Signs Reviewed: Yes Diagnostics - Radiology No standard instances Radiology Interpretation Completed By: Radiologist Summary of Radiographic Findings: Order Information: CHEST PA LAT 2 VWS. Accession Number: [id number]. CPT: 14806. INDICATION: Persistent cough and chills. COMPARISON: Comparison is made with a prior study from August 15, 2011. TECHNIQUE: Dual-energy PA and lateral views of the chest were obtained. FINDINGS: The heart is within normal limits in size. Mediastinal and hilar contours appear within normal limits. The lungs are clear. No pleural effusion is present. IMPRESSION: NO EVIDENCE FOR ACTIVE CARDIOPULMONARY DISEASE. Respiratory Course/Dx - Course Course Of Treatment: 48-year-old female presents with complaints of a persistent cough. She was seen at this facility on 07/31/2018 and diagnosed with a rhinosinusitis and started on a ten-day course of amoxicillin which she states she completed. States her symptoms improved after being on the antibiotics however over the past 3 days she has developed a harsh, cough is occasionally productive for yellow sputum. States the cough is keeping her up at night. Associated with some chills. Patient does have a history of MS. Denies fever, nasal congestion , runny nose, ear pain, sore throat, chest pain, shortness of breath, abdominal , nausea, or vomiting. Afebrile. Vital signs stable. Exam was overall unremarkable except for a dry nonproductive cough. Chest x-ray showed no acute cardiopulmonary pathology. I discussed with the patient that her cough is likely a lingering symptom of her recent upper respiratory infection caused by some mild airway inflammation and I'm recommending symptomatic treatment at this time however patient states that she is going to be doing some traveling a few days and is requesting a second course of antibiotics. I discussed the risks of prolonged antibiotic use when not indicated. She verbalizes understanding and still elects to begin. I will prescribe her doxycycline 100 mg twice a day 7 days and provided her with a prescription for Tessalon Perles 1 capsule every 8 hours as needed for cough. She states that she currently does not have a primary care provider for she is to return here in 7 days if symptoms do not improve. I did give her the contact information for the [facility] physician referral service to assist her with establishing with a primary care provider. Anticipatory guidance and warning symptoms were reviewed with the patient. Verbalizes understanding and agrees with plan of care. - Differential Dx/Diagnosis Differential Diagnosis/HQI/PQRI: Bronchitis, Lower Resp Infection, Sinusitis, Other - URI Provider Diagnosis: Acute bronchitis Discharge - Sign-Out/Discharge Documenting (check all that apply): Patient Departure All imaging exams completed and their final reports reviewed: Yes - Discharge Plan Condition: Stable Disposition: HOME Prescriptions: Azithromyxin CESAR (NF) [Z-Cesar (Zithromax) 250 mg tabs #6] 2 tab PO .TODAY, THEN 1 DAILY #6 tab Benzonatate CAP* [Tessalon 100 MG CAP*] 100 mg PO TID PRN #30 cap PRN Reason: Cough Patient Education Materials: Acute Bronchitis (ED) Referrals: Jonathan Barnes MD [Primary Care Provider] - [facility] [place] [facility] [Outside] Additional Instructions: The chest x-ray performed in the clinic today showed no evidence of pneumonia. Your history and exam are consistent with acute bronchitis. Because your symptoms improved on the antibiotics then worsened again I will prescribe you another antibiotic to treat the infection Start doxycycline 100 mg 1 tab twice a day for 7 days. Avoid prolonged sun exposure while taking as you will burn more easily. Be aware that the cough with bronchitis may persist for 2-3 weeks even if other symptoms have improved. Get plenty of rest. Drink plenty of fluids. Run a cool mist humidifer in your room at night. Take over the counter acetaminophen (Tylenol) or ibuprofen (Advil, Motrin) according to directions as needed for pain or fever. Take Tessalon Perles 1 cap every 8 hours as needed for cough. Return here 7 days if symptoms do not improve. I have given you the contact information for the [facility] physician referral service if you need assistance with establishing with a primary care provider. Seek immediate medical attention in the emergency room if you have fever greater than 100.5 F despite taking acetaminophen or ibuprofen, have chest pain , difficulty breathing, or have any worsening of symptoms. - Billing Disposition and Condition Condition: STABLE Disposition: Home - Attestation Statements Provider Attestation: Per institutional requirements, I have reviewed the chart, however, I was not consulted specifically or made aware of this patient by the midlevel provider. I did not personally evaluate, interact with , or disposition this patient. Addendum entered and electronically signed by Keagan Gardner NP 08/10/18 13: 32: Addendum Addendum: Patient is requesting an antibiotic other than doxycycline as she is traveling to [place] and is concerned about the sun exposure with doxycycline. I will switch her to azithromycin. I reviewed the course treatment with the patient. Verbalizes understanding.
== END 2018-08-10 13:36 | disposition home or self-care (01) ==
LOC: UCEAST 11:44
DX: J20.9 Acute bronchitis, unspecified (principal); G35 Multiple sclerosis; Z88.5 Allergy status to narcotic agent
CPT/HCPCS: 71046; 99212; G0463